=== PATIENT | female | born 1935 | race Asian ===

== ENCOUNTER 2022-10-16 16:09 | Emergency (ER) | payer MEDICARE ==
[~2022-10-16] VITALS: Ht 152.4 cm; Wt 45.4 kg
[2022-10-16 16:16] VITALS: BP_SYST 123
--- NOTE | 2022-10-16 16:49 | NUR ---
Patient to ER bed 2 for evaluation. Side rails up. Report given to LIUDMILA Hennessy.
--- NOTE | 2022-10-16 16:50 | NUR ---
Kaylah NUR has also evaluated patient after MD. Preparing patient for labs at this time.
--- NOTE | 2022-10-16 16:50 | NUR ---
pt bib ems c/o dyspnea. pt son claims she was at home with the pallative nurse when she started exp. "body weakness and pain ". pt son claims that ios when she started to desat and decided to call ems. pt arrived to er with 15l non rebreather sating at 97. pt eyes open to talking. oriented to person, place, and time not situation. pt obeys commands. pt denies auditory or visual problems at this time. pt skin is warm to touch pulses +1. pt has a peritoneum dialysis cathater in the left upper quadrent. skin around intact and no redness noted. pt is currently in room 2 on the monitor with son at bedside. plan of care continues
[2022-10-16 17:15] LABS: BASOPHILS # (AUTO) 0.1 K/uL (0.0-0.2); BASOPHILS % (AUTO) 0.8 % (0.0-2.0); EOSINOPHILS # (AUTO) 0.2 K/uL (0.0-0.4); EOSINOPHILS % (AUTO) 2.2 % (0.0-4.0); HEMATOCRIT 31.5 % (36-48); HEMOGLOBIN 10.4 g/dL (12.0-16.0); LYMPHOCYTES # (AUTO) 0.8 K/uL (1.0-5.5); LYMPHOCYTES % (AUTO) 10.6 % (20.5-51.5); MEAN CORPUSCULAR HEMOGLOBIN 31 pg (27-31); MEAN CORPUSCULAR HGB CONC 33 % (32-36); MEAN CORPUSCULAR VOLUME 95 fL (79.0-98.0); MONOCYTES # (AUTO) 0.8 K/uL (0.0-1.0); MONOCYTES % (AUTO) 11.2 % (1.7-9.3); NEUTROPHILS # (AUTO) 5.5 K/uL (1.8-7.7); NEUTROPHILS % (AUTO) 75.2 % (40.0-70.0); PLATELET COUNT (AUTO) 250 K/uL (130-430); RED BLOOD CELL COUNT(AUTO) 3.33 MIL/uL (4.2-6.2); RED CELL DISTRIBUTION WIDTH 14.7 % (9.0-15.0); WHITE BLOOD COUNT (AUTO) 7.3 K/uL (4.8-10.8)
[2022-10-16 17:25] LABS: ANION GAP 14 (5-15); CHLORIDE 95 mmol/L (98-107); CREATININE 7.11 mg/dL (0.55-1.30); GLUCOSE 134 mg/dL (70-99); UREA NITROGEN, BLOOD 45 mg/dL (8-21)
[2022-10-16 17:47] LABS: ALANINE AMINOTRANSFERASE 9 U/L (12-78); ALBUMIN 1.8 g/dL (3.4-4.8); ASPARTATE AMINOTRANSFERASE 15 U/L (10-37); TOTAL BILIRUBIN 0.3 mg/dL (0.0-1.0)
--- NOTE | 2022-10-16 18:25 | NUR ---
RT NOTES 1820 PLACED PT ON BIPAP (15/5 R20 100% FIO2), PER ED MD SIEGEL ORDER AND ABG RESULTS ON 7L NRB WHICH TITRATED BY RN, CO2 107.5 WILL CONT TO MONITOR PT. PER ABG IN 1HR.
--- NOTE | 2022-10-16 18:44 | NUR ---
COVID AND FLU SWAB SENT TO LAB
[2022-10-16] MEDS ORDERED: ASPIRIN 81 MG TAB.CHEW PO ONE (18:45)
--- NOTE | 2022-10-16 19:20 | NUR ---
report given to russell hua.
--- NOTE | 2022-10-16 19:20 | NUR ---
Report received from LIUDMILA Orozco & Gerhard. Will continue with POC; and, will continue to monitor VS & clinical status.
--- NOTE | 2022-10-16 19:36 | NUR ---
Patient's Son Raheel is called at [phone] and requested the POLST to be brouht into the ED for clarification of MODIFIED CODE. Patient will bring MARCE in. Dr. Mejía speaking with Raheel telephonically as well.
[2022-10-16] MEDS ORDERED: AZITHROMYCIN 500 MG in NS 250 ML IV ONE (19:45)
[2022-10-16] MEDS ORDERED: AZITHROMYCIN 500 MG/VIAL (ZITHROMAX) IV ONE (19:55)
--- NOTE | 2022-10-16 20:00 | NUR ---
No change from previous assessment. Will continue to monitor VS & clinical status.
--- NOTE | 2022-10-16 22:00 | NUR ---
No change from previous assessment. Will continue to monitor VS & clinical status.
--- NOTE | 2022-10-16 22:14 | NUR ---
SPOKE TO SON, FRANCK, INFORMED OF TRANSFER TO [facility] AND THAT SHE WILL BE GOING TO ROOM 4008. ALSO INFORMED ELECTRICAL INSTRUMENT MAKER AT 2300. SON AGREES AND AUTHORIZES TRANSFER WITH THIS RN AND LIUDMILA OROZCO
--- NOTE | 2022-10-16 22:48 | NUR ---
Attempted to call report to [facility], Room 4008, LIUDMILA Stuart. LIUDMILA Stuart stopped the report D/T PD. RN states patient must go to a different unit and will call jingle writer back. LUCY sultana.
--- NOTE | 2022-10-16 23:07 | NUR ---
EMS at bedside. EMT updated with possible transfer to another unit. LUIS DANIEL speaking with Turner in progress. EMT states to wait for report until confirmed floor and room assignment.
--- NOTE | 2022-10-16 23:44 | NUR ---
EMS EMT states when [place] decides where to transfer the patient, they will be called for another transfer. EMT left [facility] ER/
--- NOTE | 2022-10-17 | NUR ---
No change from previous assessment. Will continue to monitor VS & clinical status.
--- NOTE | 2022-10-17 00:06 | NUR ---
[facility] Called room assignment 5030 report number [phone]
--- NOTE | 2022-10-17 00:57 | NUR ---
Patient's son Raheel is called at [phone]. No answer. Voicemail message left regarding change of room assignment to room 5030.
--- NOTE | 2022-10-17 02:00 | NUR ---
No change from previous assessment. Will continue to monitor VS & clinical status.
--- NOTE | 2022-10-17 02:34 | NUR ---
Report called to [facility] Room 5030 LIUDMILA Tompkins.
--- NOTE | 2022-10-17 04:00 | NUR ---
No change from previous assessment. Will continue to monitor VS & clinical status.
--- NOTE | 2022-10-17 04:33 | NUR ---
EMS at bedside. Report given to EMT. Patient transferred to EMS [facility]. Patient departed [facility] ER to ambulance enroute to [facility] Room 5030 in stable condition.
[2022-10-17 04:34] VITALS: BP_SYST 95
== END 2022-10-17 04:34 | disposition short-term general hospital (02) ==
LOC: SED 16:09 → EDBD 16:09 → SED 10-17 04:34
DX: I21.4 Non-ST elevation (NSTEMI) myocardial infarction (principal); I48.91 Unspecified atrial fibrillation; J18.1 Lobar pneumonia, unspecified organism; N18.6 End stage renal disease; R06.02 Shortness of breath; M79.10 Myalgia, unspecified site; Z99.2 Dependence on renal dialysis; Z79.899 Other long term (current) drug therapy; Z20.822 Contact with and (suspected) exposure to COVID-19
CPT/HCPCS: 99285; 74176; 96374; 71045; 87426; 80053; 85025; 84484; 36415; 76376; 36600; 82803; 87804 ×2; J0456; 93005